=== PATIENT | male | born 1935 | race Two or more races ===

== ENCOUNTER 2021-03-22 11:05 | Day surgery (SDC) | payer OTHER ==
[~2021-03-22] VITALS: Ht 160 cm; Wt 70.3 kg
[~2021-03-22 11:05] MED LIST: BUSP10TA90 PO; EMPA1TAB PO; EMPA1TAB3 PO; GLIM4TAB42 PO; LEVO100T8 PO; LISI-285 PO; METF-371 PO; TERB250T86 PO
[2021-03-22] MEDS ORDERED: fentaNYL CITRATE 100 MCG/2 ML VL IV ONE (12:15)
[2021-03-22] MEDS ORDERED: MIDAZOLAM HCL 2MG/2ML 2ml VIAL (1mg/ml) IV ONE (12:15)
[2021-03-22] MEDS ORDERED: LIDOCAINE VISCOUS 2% 15ML UD MT ONE (12:15)
[2021-03-22] MEDS ORDERED: LIDOCAINE 2%HCL (LOCAL ANESTH.) INJ 20ML MDV ONE (12:54)
[2021-03-22] MEDS ORDERED: IODIXANOL 320MG/ML 100ML BTL IV ONE (12:54)
[2021-03-22] MEDS ORDERED: VERAPAMIL 2.5MG/ML INJ 2ML VIAL IV ONE (13:00)
[2021-03-22] MEDS ORDERED: ANGIOMAX 250 MG VIAL IV ONE (13:00)
[2021-03-22] MEDS ORDERED: HEPARIN SODIUM (PORCINE) 5000 UNITS/ML 1ML VIAL ONE (13:00)
[2021-03-22] MEDS ORDERED: SODIUM CHL 0.9% 0 ML ONE (13:00)
== END 2021-03-22 15:55 | disposition home or self-care (01) ==
LOC: CATH 11:05
PROVIDERS: ATTEND Internal Medicine
DX: R94.31 Abnormal electrocardiogram [ECG] [EKG] (principal); I35.0 Nonrheumatic aortic (valve) stenosis; I25.2 Old myocardial infarction; I10 Essential (primary) hypertension; Z82.49 Family history of ischemic heart disease and other diseases of the circulatory system; Z86.73 Personal history of transient ischemic attack (TIA), and cerebral infarction without residual deficits; E11.9 Type 2 diabetes mellitus without complications; Z79.84 Long term (current) use of oral hypoglycemic drugs
CPT/HCPCS: 93312; 93458; J1644; J2250; J3010; J7030; Q9967; U0003; 99152